=== PATIENT | male | born 1945 | race Caucasian/White ===

== ENCOUNTER 2018-06-21 06:07 | Day surgery (SDC) | payer MEDICARE, BC ==
[~2018-06-21] VITALS: Ht 165.1 cm; Wt 81.8 kg
[~2018-06-21 06:07] MED LIST: BIMA01SOL OU; COMB0.2S OU; LISI10TA4 PO; LR 1,000 ML IV ONE; ceFAZolin SOD 1 GM in D5W MINI-BAG PLUS 50 ML IV ONE
[2018-06-21] MEDS ORDERED: BUPIVACAINE/EPIN 0.25% 30 ML VIAL As Ordered ONE (06:52)
[2018-06-21] MEDS ORDERED: fentaNYL 250 MCG/5 ML INJECTION (J3010) As Ordered ONE (07:56)
[2018-06-21] MEDS ORDERED: ePHEDrine SULFATE 25 MG/5 ML(5MG/ML) SYRINGE As Ordered ONE (07:56)
[2018-06-21] MEDS ORDERED: LIDOCAINE 2% INJ 100 MG/5 ML SDV (FOR ANES.) As Ordered ONE (07:56)
[2018-06-21] MEDS ORDERED: ROCURONIUM BROMIDE 50 MG/5 ML VIAL As Ordered ONE ×2 (07:56→08:10)
[2018-06-21] MEDS ORDERED: PROPOFOL 200 MG/20 ML VIAL As Ordered ONE (07:56)
[2018-06-21] MEDS ORDERED: dexameTHASONE 4 MG/ML 1ML VIAL (J1100) As Ordered ONE (07:56)
[2018-06-21] MEDS ORDERED: MIDAZOLAM INJ 2 MG/2 ML VIAL (J2250) As Ordered ONE (07:56)
[2018-06-21] MEDS ORDERED: ONDANSETRON 4MG/2ML VIAL (J2405) As Ordered ONE (07:56)
[2018-06-21] MEDS ORDERED: SUGAMMADEX SODIUM 500 MG/5 ML VIAL (BRIDION) As Ordered ONE (07:56)
[2018-06-21] MEDS ORDERED: METOCLOPRAMIDE INJ 10MG/2ML VIAL (J2765) As Ordered ONE (07:56)
[2018-06-21] MEDS ORDERED: LIDOCAINE 2% JELLY 6 ML SYRINGE As Ordered ONE (08:01)
[2018-06-21] MEDS ORDERED: KETOROLAC 60 MG/2 ML VIAL (J1885) As Ordered ONE (08:20)
[2018-06-21] MEDS ORDERED: ACETAMINOPHEN 1000MG 100ML IV BTL (OFIRMEV) (J0131 PER 10MG) As Ordered ONE (08:22)
[2018-06-21] MEDS ORDERED: GLYCOPYRROLATE INJ 0.2 MG/ML 2 ML VIAL As Ordered ONE (09:01)
[2018-06-21] MEDS ORDERED: NORCO, ANEXSIA 5/325MG TABLET (HYDROcodone/ACETAMINOPHEN) PO PRN (10:00)
[2018-06-21] MEDS ORDERED: LR 1,000 ML IV SCH ×2 (10:00→10:30)
[2018-06-21] MEDS ORDERED: ONDANSETRON 4MG/2ML VIAL (J2405) IV PRN ×2 (10:00→10:30)
--- NOTE | 2018-06-21 10:00 | RO ---
DATE OF PROCEDURE: 06/21/2018 PREOPERATIVE DIAGNOSIS: Bilateral inguinal hernias. POSTOPERATIVE DIAGNOSIS: Bilateral inguinal hernias (direct). SURGEON: Zachary Rodas MD SKIN CARVER: ANESTHESIA: General endotracheal anesthesia. PROCEDURE: Robotic-assisted bilateral inguinal hernia repair with ProGrip mesh. ESTIMATED BLOOD LOSS (EBL): Minimal. FLUIDS: Crystalloid. BRIEF PROCEDURE SUMMARY: The patient was brought to the operating room, was given general anesthesia. After adequate anesthesia and preoperative antibiotics were given, the patient was prepped and draped in usual sterile fashion. Next, a supraumbilical incision was made with skin knife. Blunt dissection was carried down to fascia and Veress needle placed into the abdominal cavity insufflated to 15 mm pressure. A dilating 8 mm trocar was placed at the umbilicus and under direct visualization two lateral 8 mm trocars were placed. Next, the patient was placed in steep Trendelenburg. All the hernia contents had been reduced at this time and the robot was docked at this time. Next, the monopolar cut scissors were used to take down the peritoneum on the left and the hernia sac was well visualized. It was a direct hernia and the epigastric was well visualized. Eventually this was mobilized out of the scrotum into the preperitoneal space, off Rocky's ligament, off the backside of pubis and laterally off the cord structures. Once this was performed, the right side was exposed in the same manner using monopolar cut scissors to make the peritoneal incision and then dissection down to the hernia sac itself. Some dissection was performed around it, but then I went up lateral on the peritoneum making the peritoneal flap. Once this was mobilized quite nicely lateral and medial down to the vessels and off Rocky's, the hernia sac was able to be mobilized quite nicely off the Rocky's ligament on the side as well, off the backside of Rocky's and off the backside of the pubis as well. The other side of the dissection was able to be visualized. At this time, the ProGrip mesh was cut to the appropriate size, placed in both sides after using a #3-0 V-Loc suture on the left-hand side. Given the fascial defect, it was relatively large. I did bring this closer together. The fascial edges was not completely closed but it was more closely approximated allowing the mesh to cover this much more nicely in this area. The right-hand side was not as a large indirect hernia and thus, this side was not closed. In any case, after the mesh was placed the peritoneum was closed with running #3-0 V-Loc sutures. The abdomen was desufflated and trocars removed under direct visualization. #4-0 Vicryl was used close the skin. Steri-Strips and dry sterile dressing was applied. The patient was awakened, extubated, brought to recovery room awake, alert, hemodynamically stable. Sponge and needle counts correct times two.
[2018-06-21] MEDS ORDERED: PERCOCET 5MG/325MG TAB PO PRN (10:30)
[2018-06-21] MEDS ORDERED: fentaNYL 100 MCG/2 ML INJECTION (J3010) IV PRN (10:30)
[2018-06-21 12:58] VITALS: BP 166/73
== END 2018-06-23 13:28 | disposition home or self-care (01) ==
LOC: M SDC 06:07
PROVIDERS: ATTEND Surgery
DX: K40.20 Bilateral inguinal hernia, without obstruction or gangrene, not specified as recurrent (principal); I10 Essential (primary) hypertension; Z88.1 Allergy status to other antibiotic agents; Z79.899 Other long term (current) drug therapy; Z72.0 Tobacco use
CPT/HCPCS: 49650; C1781; J0131; J0690; J1100; J1885; J2250; J2405; J2765; J3010

== ENCOUNTER → 2021-05-30 | Outpatient (CLI) | payer MEDICARE, BC ==
[~2021-05-30] MED LIST changes: +LISI10TA22 PO; -LISI10TA4 PO; -LR 1,000 ML IV ONE; -ceFAZolin SOD 1 GM in D5W MINI-BAG PLUS 50 ML IV ONE
== END ==
LOC: M LABSMTC 10:04
PROVIDERS: ATTEND Anesthesiology
DX: Z01.812 Encounter for preprocedural laboratory examination (principal)

== ENCOUNTER 2021-06-03 08:55 | Day surgery (SDC) | payer MEDICARE, BC ==
[~2021-06-03] VITALS: Ht 165.1 cm; Wt 77.9 kg
[~2021-06-03 08:55] MED LIST changes: +BSS IRR 500ML/OMIDRIA 4ML IRR BAG (OR ONLY) As Ordered ONE; +CEFUROXIME 1MG/0.1ML INTRACAMERAL INJ As Ordered ONE; +LIDOCAINE 1% SDV 5ML VIAL As Ordered ONE; +PROPARACAINE 0.5% OPHTH SOL 15ML OD ONE
[2021-06-03] MEDS: OFLOXACIN 0.3 % (OCUFLOX) OPTH SOL 5ML OD SCH ×3 (09:27→09:45)
[2021-06-03] MEDS: PHENYLEPHRINE 2.5% OPHTH SOL 2ML OD SCH ×3 (09:27→09:45)
[2021-06-03] MEDS: TROPICAMIDE 1% OPHTH SOLN 2ML OD SCH ×3 (09:28→09:45)
[2021-06-03] MEDS ORDERED: DUOVISC (0.50ML VISCOAT/0.85ML PROVISC) OPHTH KIT As Ordered ONE (09:55)
[2021-06-03] MEDS ORDERED: fentaNYL 100 MCG/2 ML INJECTION As Ordered ONE (10:11)
[2021-06-03] MEDS ORDERED: MIDAZOLAM INJ 2MG/2ML VIAL (J2250 PER 1MG) As Ordered ONE (10:11)
[2021-06-03 10:46] VITALS: BP 146/73
== END 2021-06-03 11:18 | disposition home or self-care (01) ==
LOC: M SDC 08:55
PROVIDERS: ATTEND Ophthalmology
DX: H25.11 Age-related nuclear cataract, right eye (principal); H40.1112 Primary open-angle glaucoma, right eye, moderate stage; I10 Essential (primary) hypertension; F17.218 Nicotine dependence, cigarettes, with other nicotine-induced disorders; Z79.899 Other long term (current) drug therapy; Z88.8 Allergy status to other drugs, medicaments and biological substances; Z91.011 Allergy to milk products; Z91.018 Allergy to other foods
CPT/HCPCS: 66183; 66984; C1783; J0697; J1097; J2250; J3010; V2632

== ENCOUNTER → 2022-07-10 | Outpatient (CLI) | payer MEDICARE, BC ==
[~2022-07-10] MED LIST changes: -BSS IRR 500ML/OMIDRIA 4ML IRR BAG (OR ONLY) As Ordered ONE; -CEFUROXIME 1MG/0.1ML INTRACAMERAL INJ As Ordered ONE; -LIDOCAINE 1% SDV 5ML VIAL As Ordered ONE; -PROPARACAINE 0.5% OPHTH SOL 15ML OD ONE
== END ==
LOC: M RAD 09:40
PROVIDERS: ATTEND Family Medicine
DX: Z87.891 Personal history of nicotine dependence (principal)

== ENCOUNTER 2022-08-10 06:28 | Day surgery (SDC) | payer MEDICARE, BC ==
[~2022-08-10] VITALS: Ht 165.1 cm; Wt 73.2 kg
[~2022-08-10 06:28] MED LIST changes: +NS 1,000 ML IV ONE
[2022-08-10] MEDS ORDERED: propofoL 200 MG/20 ML VIAL As Ordered ONE ×2 (09:27→09:38)
[2022-08-10 09:56] VITALS: TEMP 97
[2022-08-10 10:21] VITALS: BP 121/80; O2SAT 98
== END 2022-08-10 14:32 | disposition home or self-care (01) ==
LOC: M OPP 06:28
PROVIDERS: ATTEND Surgery
DX: Z12.11 Encounter for screening for malignant neoplasm of colon (principal); Z86.010 Personal history of colon polyps; D12.6 Benign neoplasm of colon, unspecified; K57.30 Diverticulosis of large intestine without perforation or abscess without bleeding; F17.200 Nicotine dependence, unspecified, uncomplicated; Z79.899 Other long term (current) drug therapy; Z88.1 Allergy status to other antibiotic agents; Z91.011 Allergy to milk products; Z91.018 Allergy to other foods